=== PATIENT | female | born 1980 | race Caucasian/White ===

== ENCOUNTER 2018-09-16 23:30 | Emergency (ER) | payer MEDICAID, SELFPAY ==
[2018-09-16 23:32] VITALS: BP 133/91; PULSE 94; RESP 19; TEMP 36.8; O2SAT 96; BMI 57.7
--- NOTE | 2018-09-17 00:18 | CT_ITS ---
HISTORY: PT STATED ABDOMINAL PAIN AND FEEDING TUBE ISSUES TECHNIQUE: Helically acquired images were obtained of the abdomen and pelvis without oral or IV contrast. A radiation dose optimization technique was used for this scan. COMPARISON: None FINDINGS: # of images incl. paperwork: [id number] LUNG BASES: Lung bases are clear. Cardiac pacer lead is present. Heart is not enlarged. Transcutaneous, transgastric gastroenteric feeding tube has been pulled back. Loop of the tube is now within the gastric cardia and gastric fundus. The tip of the tube is within the gastric pylorus. It is well upstream of the ligament of Treitz. CT abdomen: Some degenerative disc disease and facet arthropathy The gallbladder has been resected. Liver, spleen, pancreas, and adrenal glands are normal. The kidneys are normal. The aorta is normal. There is no intra-or extrahepatic biliary ductal dilatation. CT pelvis: No ascites is present. The uterus has been resected. The appendix is not perceived, and likely has been resected. The bladder is normal. Diverticulosis is present within the sigmoid colon and descending colon CT/Abdomen/Pelvis without Cont IMPRESSION: Transischemic gastric gastroenteric tube has been pulled back. The tip of the tube is within the pylorus due to a loop of the tube within the gastric cardia and gastric fundus. The balloon appears to be adequately positioned with in the gastric fundus. There is no evidence of leakage of gas or liquid along the tube with the tube tract Individualized dose optimization techniques were used for this CT. at 0241 Reported and signed by: Vitaly Mcdaniel MD Electronically Signed: Vitaly Mcdaniel MD at 2:40 EDT Tel , Service support ,
[2018-09-17] MEDS: HYDROmorphone 1 MG/ML Syringe IV ×2 (00:56→03:13)
[2018-09-17] MEDS: proMETHazine 25 MG/ML Syringe 12.5 MG IV (00:56)
[2018-09-17] MEDS: 0.9% Normal Saline 1,000 ML 1000 ML IV (00:56)
[2018-09-17 01:12] LABS: Absolute Lymphocyte Count 4.25 X10^3/uL (0.83-4.51); Absolute Neutrophil Count 5.4 X10^3/uL (2.0-7.7); Basophil# 0.03 X10^3/uL; Basophil% 0.3 % (0-1); Eosinophil# 0.16 X10^3/uL; Eosinophils% 1.5 % (0-5); Hematocrit 40.8 % (37-47); Hemoglobin 13.3 g/dL (12.0-15.0); Lymphocyte # 4.25 X10^3/ul (4.0); Lymphocyte % 40.6 % (19-41); Mean Corp Hgb Conc 32.6 g/dL (32-36); Mean Corpuscular Hgb 28.4 pg (27.0-32.0); Mean Corpuscular Volume 87.2 fL (81-99); Mean Platelet Vol. 10.3 fl (6.2-12.0); Monocyte# 0.64 X10^3/uL; Monocyte% 6.1 % (0-10); NRBC Flagged by Analyzer 0 % (0-5); Neutrophil # 5.36 X10^3/uL (2.7-7.7); Neutrophil % 51.1 % (47-70); Platelet Count 332 K/mm3 (150-450); RBC Distribution Width CV 14.3 % (11.6-14.6); RBC Distribution Width SD 45.2 fl (35.1-43.9); Red Blood Count 4.68 M/mm3 (4.2-5.4); White Blood Count 10.5 K/mm3 (4.4-11.0)
[2018-09-17 01:38] LABS: AST(SGOT) 21 U/L (15-37); Alanine Aminotransfer ALT/SGPT 39 U/L (13-56); Albumin, Serum 3.2 g/dL (3.2-5.0); Alkaline Phosphatase 137 U/L (45-117); Anion Gap 9 (5-15); BUN 13 mg/dL (7-18); Bilirubin, Direct 0.07 mg/dL (0.00-0.30); Calcium,Total 8.4 mg/dL (8.5-10.1); Chloride 108 mmol/L (98-107); Creatinine, Serum 0.59 mg/dL (0.55-1.02); EST Glomerular Filtration Rate 119 mL/min (>60); Est Glom Filt Rate - Afr Amer 144 mL/min (>60); Estimated Creatinine Clearance 100.25 ml/min; Globulin 3.3 g/dL (2.2-4.2); Glucose 96 mg/dL (74-106); Lipase 133 U/L (73-393); Potassium 3.8 mmol/L (3.5-5.1); Protein, Total 6.5 g/dL (6.4-8.2); Sodium Level 143 mmol/L (136-145)
--- NOTE | 2018-09-17 02:07 | ED.RN ---
PER DR JAMES PT IS NOT SEPTIC.
--- NOTE | 2018-09-17 03:01 | ED.DCSUM_ITS ---
- ER Visit Summary Date of Service: 09/17/18 Chief Complaint: Abdominal pain History of Present Illness: The patient is a 38 F who presents with abdominal pain. Patient has a history of idiopathic gastroparesis. She states that she was on hospice for this at one point but no longer sees them. She does still follow with palliative care. She has a GJ tube. She normally has to empty her drain this. She reports getting decreased output. She complains of feeling lethargic over the last 3 days. She complains of increased abdominal pain nausea vomiting and diarrhea over the last 2 to 3 days. She reports fever of 101.2. Her abdominal pain is worst in the left upper quadrant. Physical Examination: Afebrile vitals unremarkable Moist mucous membranes Heart regular rate and rhythm Lungs clear Abdomen soft nondistended Left upper quadrant tenderness with no guarding no rebound G-tube noted Test Results: CBC CMP lipase unremarkable. CT the abdomen and pelvis read as the gastroenteric tube is been pulled back with the tip within the pylorus due to a loop in the tube. The balloon appears to be appropriate located in the stomach. Emergency Department Course and Treatment: Patient was treated with IV fluids, Dilaudid, Phenergan. Imaging as above. Imaging does appear to show malposition of the gastroenteric tube. Patient's previous care has been at [facility]. She also continues to complain of significant abdominal pain. She was given repeat doses of Dilaudid. She will be transferred to [facility]. Treatment Plan: [] Disposition: Transfer Impression: Intractable abdominal pain Gastroparesis GJ tube dislodgment This note was generated with [employer]ire[employer] dictation software. It may contain incorrect words, spelling, and punctuation that were not noted in review of the chart prior to signing ED Disposition - Plan for ED Patient: Referrals: Ta Chen MD [Primary Care Provider] -
--- NOTE | 2018-09-17 03:02 | ED.RN ---
[facility] CONTACT FOR TRANSFER
[2018-09-17 03:08] VITALS: BP 134/66; PULSE 70; RESP 16; O2SAT 95
--- NOTE | 2018-09-17 03:14 | ED.DEP ---
ED Disposition - Plan for ED Patient: Instructions: ABDOMINAL PAIN, Unknown Cause, (Female), Gastroparesis Referrals: Ta Chen MD [Primary Care Provider] -
--- NOTE | 2018-09-17 03:23 | ED.RN ---
PT WOULD NOT WAIT THE 15 MINUTES TIE AFTER DILAUDID.PT DE-ACTIVATED HER PORT AND SAID SHE WAS GOOD AND LEFT.
[2018-09-17 03:24] VITALS: BP 134/66; PULSE 70; RESP 16; O2SAT 95
== END 2018-09-17 03:25 | disposition home or self-care (01) ==
LOC: ED 09-17 00:13
PROVIDERS: Emergency Provider Emergency Medicine; Family Provider Internal Medicine; PCP Internal Medicine
DX: R10.12 Left upper quadrant pain (principal); G89.29 Other chronic pain; K31.84 Gastroparesis; K94.29 Other complications of gastrostomy; R19.7 Diarrhea, unspecified; R11.2 Nausea with vomiting, unspecified; R50.9 Fever, unspecified; Z79.899 Other long term (current) drug therapy
CPT/HCPCS: 36591; 74176; 80048; 80076; 83690; 85025; 96361; 96374; 96375; 96376; 99284; J7030; A4216

== ENCOUNTER 2019-03-27 15:13 | Observation (INO) | payer MEDICAID, SELFPAY ==
[2019-03-27] VITALS (8 sets, daily range): BP systolic 100–151; BP diastolic 60–89; PULSE 68–136; RESP 16–26; TEMP 36.1–37.1; O2SAT 92–100; BMI 46.0; BMI 56.7
--- NOTE | 2019-03-27 15:32 | EKG12_ITS ---
Test Reason : Blood Pressure : / mmHG Vent. Rate : 118 BPM Atrial Rate : 118 BPM P-R Int : 130 ms QRS Dur : 082 ms QT Int : 298 ms P-R-T Axes : 062 037 053 degrees QTc Int : 417 ms Sinus tachycardia Otherwise normal ECG Confirmed by SRUTHI HENDERSON, CHRISTIAN ([id number]), social media editor BRIAN DEAN ([id number]) on 03/31/2019 10:26:15 AM Referred By: ANNA Confirmed By:MADIE NEGRO MD
[2019-03-27 16:04] LABS: Absolute Lymphocyte Count 2.84 X10^3/uL (0.83-4.51); Absolute Neutrophil Count 8.1 X10^3/uL (2.0-7.7); Basophil# 0.06 X10^3/uL; Basophil% 0.5 % (0-1); Eosinophil# 0.19 X10^3/uL; Eosinophils% 1.6 % (0-5); Hematocrit 45.2 % (37-47); Hemoglobin 14.1 g/dL (12.0-15.0); Lymphocyte # 2.84 X10^3/ul (4.0); Lymphocyte % 23.5 % (19-41); Mean Corp Hgb Conc 31.2 g/dL (32-36); Mean Corpuscular Hgb 26.9 pg (27.0-32.0); Mean Corpuscular Volume 86.1 fL (81-99); Mean Platelet Vol. 10.1 fl (6.2-12.0); Monocyte# 0.73 X10^3/uL; NRBC Flagged by Analyzer 0 % (0-5); Neutrophil # 8.11 X10^3/uL (2.7-7.7); Neutrophil % 67.2 % (47-70); Platelet Count 398 K/mm3 (150-450); RBC Distribution Width CV 13.7 % (11.6-14.6); RBC Distribution Width SD 43.2 fl (35.1-43.9); Red Blood Count 5.25 M/mm3 (4.2-5.4); White Blood Count 12.1 K/mm3 (4.4-11.0)
[2019-03-27 16:04] LABS: Bacteria 0 SEEN /hpf (None Seen); Mucous, Urine 0 SEEN /hpf (<or=2+); Red Blood Cells-Urine 0 SEEN /hpf (0-5); White Blood Cells 0 SEEN /hpf (0-5)
[2019-03-27 16:09] LABS: Color, Urine Yellow (Yellow); Glucose, Dipstick Normal (Normal); Ketone-Dipstick Negative (Negative); Leukocyte Esterase-Dipstick Negative /ul (Negative); Nitrite-Dipstick Negative (Negative); Occult Blood-Urine Negative /ul (Negative); Protein-Dipstick Negative (Negative); Urine Bilirubin Dipstick Negative (Negative); Urine Clarity Sl. Cloudy (Clear); Urine Urobilinogen Normal (Normal)
[2019-03-27 16:14] LABS: Internal QC Validated? YES +Cl - CLEAR BKGD; Pregnancy, Serum, hCG Quali. NEGATIVE Negative
[2019-03-27 16:21] LABS: ALB/GLOB Ratio 0.7 RATIO (0.9-2.4); AST(SGOT) 32 U/L (15-37); Alanine Aminotransfer ALT/SGPT 47 U/L (13-56); Albumin, Serum 3.1 g/dL (3.2-5.0); Alkaline Phosphatase 159 U/L (45-117); Anion Gap 5 (5-15); BUN 12 mg/dL (7-18); BUN/Creat Ratio 13.5 RATIO (10-20); Chloride 107 mmol/L (98-107); Creatinine, Serum 0.89 mg/dL (0.55-1.02); EST Glomerular Filtration Rate 75 mL/min (>60); Est Glom Filt Rate - Afr Amer 90 mL/min (>60); Estimated Creatinine Clearance 68.81 ml/min; Globulin 4.2 g/dL (2.2-4.2); Glucose 114 mg/dL (74-106); Lipase 79 U/L (73-393); Potassium 4.2 mmol/L (3.5-5.1); Protein, Total 7.3 g/dL (6.4-8.2); Sodium Level 136 mmol/L (136-145)
[2019-03-27 16:33] LABS: Squamous Epithelial Cells - UA 0-5 SEEN /hpf (5-10)
[2019-03-27] MEDS: proMETHazine 25 MG/ML Syringe 6.25 MG IV ×2 (16:42→19:49)
[2019-03-27] MEDS: fentaNYL 100 MCG/2 ML Ampul 50 MCG IV (16:43)
--- NOTE | 2019-03-27 17:40 | ED.DCSUM_ITS ---
- ER Visit Summary Date of Service: 03/27/19 Chief Complaint: Vomiting and diarrhea History of Present Illness: The patient is a 39 F with a history of gastroparesis who was previously on hospice and is currently treated by palliative care for gastroparesis. She presents today with vomiting and diarrhea for the past 2 days. She says she is out of her feeds because of a male issue and is expecting her feeds to arrive at her home in 2 days. She also reports a cough and she had fevers recently. She has an ongoing cough and respiratory symptoms as well as fevers, she has been evaluated for these issues, and they have not identified a source. She said she normally gets her care at the [facility]. She was attempting to drive up there but felt too poorly and could not make the drive. Physical Examination: Afebrile and vital signs unremarkable except for heart rate of 136 and respiratory rate of 24. Heart is tachycardic but regular. She has a left chest PowerPort. Lungs are clear, but she does exhibit upper airway respiratory noise. Abdomen is soft and nontender. She has a GJ tube. Skin is unremarkable. Test Results: White count 12.1. Otherwise labs all fairly unremarkable. hCG negative. Urinalysis normal. C. difficile pending. EKG showed sinus rhythm at a rate of 118. Chest x-ray pending. Emergency Department Course and Treatment: Patient was treated with fluids, nausea medicine, pain medicine.. She requested transfer to the [facility]. They did not have beds available, but were agreeable to transfer once they did. I spoke with the patient. She was agreeable to admission here and transfer should she need it. I contacted the hospitalist who will admit for further care, fluids, and nutrition. Treatment Plan: As above Disposition: Admission ImpressioN: Vomiting Diarrhea Gastroparesis This note was generated with [employer] dictation software. It may contain incorrect words, spelling, and punctuation that were not noted in review of the chart prior to signing ED Disposition - Plan for ED Patient: Referrals: Ta Chen MD [Primary Care Provider] -
--- NOTE | 2019-03-27 17:42 | PCM.HP.STD ---
<Guevara Liu - Last Filed: 03/27/19 17:42> Problem List (1) Intractable nausea and vomiting Status: Acute (2) Asthma exacerbation Status: Acute (3) Gastroparesis Status: Chronic (4) C. difficile colitis Status: Chronic (5) Seizure disorder Status: Chronic History of Present Illness Date of Admission: 03/27/19 Chief Complaint: intractable nausea/vomiting/diarrhea The patient is a 39 year old F with pmhx of gastroparesis of unclear etiology (she states it happened [place] [employer] [place]), presence of GJ tube, seizure disorder, Asthma, C diff colitis, recently admitted at [facility] with intractable nausea/vomiting, who presented to the ER with intractable nausea vomiting and diarrhea. She says this started two days ago. She has not been able to keep down any meds. She states she has been drinking to feed herself but unable to keep anything down. She says she does not actually put food through the GJ tube, it is only there maintaining a sinus. She has vomited approximately 10 times. She has severe 9/10 abdominal cramping. She has had about 15 rounds of watery diarrhea. She also is SOB and very wheezy stating her asthma has never been this bad. She is on palliative care with [facility], and states she declined to go hospice this AM. ER planned to transfer her to the clinic however they do not have a bed. Her GI doctor is Gautam Malagon. She planned to go to the clinic however she was too ill. She has never been admitted here before. [] Past Medical History Past Medical History (Chronic Problems): Chronic Problems Gastroparesis (Chronic) C. difficile colitis (Chronic) Seizure disorder (Chronic) Allergies Latex, Natural Rubber Allergy (Verified 09/16/18 23:32) Anaphylaxis morphine Adverse Reaction (Verified 09/16/18 23:32) Hives moxifloxacin [From Avelox] Adverse Reaction (Verified 09/16/18 23:32) Hives ondansetron [From Zofran] Adverse Reaction (Verified 09/16/18 23:32) Other Home Medications: Ambulatory Orders Medication Instructions Recorded Albuterol Sulfate [Albuterol 1 - 2 puff IH Q4H PRN PRN 03/27/19 Sulfate Hfa] Diazepam [Valium] 5 mg PO BID 03/27/19 Dicyclomine HCl [Bentyl] 10 mg PO Q4H PRN 03/27/19 Epi Pen (for allergic rxn) 0.3 ml IM DAILY PRN PRN 03/27/19 Fluticasone Propionate [Flovent 1 puff INHALATION BID 03/27/19 Hfa] Ipratropium/Albuterol Sulfate 3 ml INHALATION 4X/DAY 03/27/19 [Iprat-Albut 0.5-3(2.5) mg/3 ml] Levetiracetam [Keppra] 2,000 mg PO BID 03/27/19 Oxycodone HCl/Acetaminophen 1 tab PO 4X/DAY 03/27/19 [Oxycodone-Acetaminophen 5-325] Promethazine HCl 50 mg PO Q4H PRN PRN 03/27/19 traZODone [Desyrel] 200 mg PO QHS 03/27/19 Surgical History: - - GJ tube. 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 Denies: Cough, Sputum production Gastrointestinal: Reports: Abdominal Pain, Diarrhea, Nausea, Vomiting Genitourinary: Denies: Dysuria, Hematuria Musculoskeletal: Denies: Joint Pain, Joint Tenderness Skin: Denies: Rash, Wounds Neurological: Denies: Numbness, Tingling, Focal weakness Psychiatric: Denies: Anxiety, Depression, Homicidal Ideations, Suicidal Ideations Hematologic/ Lymphatic: Denies: Easy Bruising, Easy Bleeding VTE Information - Inpt Only VTE Present on Admission: No VTE Mechan Device Prophylaxis: None VTE Pharm Prophylaxis ordered?: Yes Patient Problems: Active and Suspected Problems Intractable nausea and vomiting (Acute) Asthma exacerbation (Acute) - Physical Exam Vitals/I&O's: Vital Signs Temp Pulse Resp BP Pulse Ox 97.7 F L 93 19 H 122/89 H 98 03/27/19 17:00 03/27/19 17:23 03/27/19 17:23 03/27/19 17:23 03/27/19 17:23 Oxygen Delivery Method Room Air Weight: 260 lb Body Mass Index (BMI) 46.0 Intake and Output for Last 24 Hours 03/25/19 03/26/19 03/27/19 23:59 23:59 23:59 Intake Total 500 / 500 Balance 500 / 500 General: Alert, Oriented x3, Cooperative HEENT: Atraumatic, PERRLA, EOMI, Normocephalic Neck: Supple, No JVD, Negative Carotid Bruits Lungs: Normal air movement, Wheezes Cardiovascular: Regular rate, No murmurs Abdomen: Soft, Hypoactive Bowel Sounds, Obese, Tender Extremities: No edema, Capillary Refill Less than 3 Seconds Skin: No rashes, No breakdown Musculoskeletal: No Tenderness to Palpation of Joints or Extremities Neurological: Cranial nerves II-XII grossly intact Psych/Mental Status: Normal Affect, Appropriate, Alert and oriented to time, place, person, mood and affect Microbiology Past 72 Hours 03/27/19 16:15 Mucosa - Nose Influenza Types A,B Direct FA (ARELI) - Final Laboratory Results 03/27/19 15:45: WBC 12.1 H, RBC 5.25, Hgb 14.1, Hct 45.2, MCV 86.1, MCH 26.9 L, MCHC 31.2 L, RDW Std Deviation 43.2, RDW Coeff of Pradeep 13.7, Plt Count 398, MPV 10.1, Immature Gran % (Auto) 1.200 H, Neut % (Auto) 67.2, Lymph % (Auto) 23.5, [place] % (Auto) 6.0, Eos % (Auto) 1.6, Baso % (Auto) 0.5, Absolute Neuts (auto) 8.1 H, Absolute Lymphs (auto) 2.84, Nucleated RBC % 0 03/27/19 15:45: Sodium 136, Potassium 4.2, Chloride 107, Carbon Dioxide 24.0, Anion Gap 5, BUN 12, Creatinine 0.89, Estim Creat Clear Calc 68.81, Est GFR (MDRD) Af Amer 90, Est GFR (MDRD) Non-Af 75, BUN/Creatinine Ratio 13.5, Glucose 114 H, Calcium 9.0, Total Bilirubin 0.20, AST 32, ALT 47, Alkaline Phosphatase 159 H, Total Protein 7.3, Albumin 3.1 L, Globulin 4.2, Albumin/Globulin Ratio 0.7 L, Lipase 79 03/27/19 15:45: Serum , Qual NEGATIVE 03/27/19 16:01: Urine Color Yellow, Urine Clarity Sl. Cloudy, Urine pH 6.0, Ur Specific [place] 1.010, Urine Protein Negative, Urine Glucose (UA) Normal, Urine Ketones Negative, Urine Occult Blood Negative, Urine Nitrite Negative, Urine Bilirubin Negative, Urine Urobilinogen Normal, Ur Leukocyte Esterase Negative, Urine RBC 0 SEEN, Urine WBC 0 SEEN, Ur Squamous Epith Cells 0-5 SEEN, Urine Bacteria 0 SEEN, Urine Mucus 0 SEEN Assessment/Plan All Active Problems Intractable nausea and vomiting (Acute) Asthma exacerbation (Acute) 1. Intractable nausea/vomiting/diarrhea - likely 2/2 gastroparesis. possibly viral syndrome, possily recurrent Cdiff. Check stool for c diff and enteric panel. Provide IV fluids, antiemetics, pain control. HCG neg. Alk phos somewhat elevated. Lipase neg. UA neg. 2. Gastroparesis - unclear etiology. Apparently she is on palliative care for this and was offered hospice today but declined. She has GJ in place. Nutrition consult for dietary management. 3. Asthma exacerbation - SOB and very wheezy, initate aerosols and steroids. 4. Seizure disorder - has been off meds. attempt to put in GJ tube. Takes Scheduled keppra and valium for this. 5. Morbid obesity - nutrition consult DVT ppx: Lovenox DC planning: may need transfer to [facility] if bed becomes available This patient was seen by Guevara Liu PA-C under the supervision of Dr. Marrero. <Fernando Marrero F - Last Filed: 03/27/19 18:38> History of Present Illness The patient is a 39 year old F [] Past Medical History Allergies Latex, Natural Rubber Allergy (Verified 09/16/18 23:32) Anaphylaxis morphine Adverse Reaction (Verified 09/16/18 23:32) Hives moxifloxacin [From Avelox] Adverse Reaction (Verified 09/16/18 23:32) Hives ondansetron [From Zofran] Adverse Reaction (Verified 09/16/18 23:32) Other - Physical Exam Vitals/I&O's: Vital Signs Temp Pulse Resp BP Pulse Ox 97.7 F L 96 16 136/78 H 98 03/27/19 17:00 03/27/19 18:28 03/27/19 18:28 03/27/19 18:28 03/27/19 18:28 Oxygen Delivery Method Room Air Weight: 260 lb Body Mass Index (BMI) 46.0 Intake and Output for Last 24 Hours 03/25/19 03/26/19 03/27/19 23:59 23:59 23:59 Intake Total 500 / 500 Balance 500 / 500 Microbiology Past 72 Hours 03/27/19 16:15 Mucosa - Nose Influenza Types A,B Direct FA (ARELI) - Final Laboratory Results 03/27/19 15:45: WBC 12.1 H, RBC 5.25, Hgb 14.1, Hct 45.2, MCV 86.1, MCH 26.9 L, MCHC 31.2 L, RDW Std Deviation 43.2, RDW Coeff of Pradeep 13.7, Plt Count 398, MPV 10.1, Immature Gran % (Auto) 1.200 H, Neut % (Auto) 67.2, Lymph % (Auto) 23.5, [place] % (Auto) 6.0, Eos % (Auto) 1.6, Baso % (Auto) 0.5, Absolute Neuts (auto) 8.1 H, Absolute Lymphs (auto) 2.84, Nucleated RBC % 0 03/27/19 15:45: Sodium 136, Potassium 4.2, Chloride 107, Carbon Dioxide 24.0, Anion Gap 5, BUN 12, Creatinine 0.89, Estim Creat Clear Calc 68.81, Est GFR (MDRD) Af Amer 90, Est GFR (MDRD) Non-Af 75, BUN/Creatinine Ratio 13.5, Glucose 114 H, Calcium 9.0, Total Bilirubin 0.20, AST 32, ALT 47, Alkaline Phosphatase 159 H, Total Protein 7.3, Albumin 3.1 L, Globulin 4.2, Albumin/Globulin Ratio 0.7 L, Lipase 79 03/27/19 15:45: Serum , Qual NEGATIVE 03/27/19 16:01: Urine Color Yellow, Urine Clarity Sl. Cloudy, Urine pH 6.0, Ur Specific [place] 1.010, Urine Protein Negative, Urine Glucose (UA) Normal, Urine Ketones Negative, Urine Occult Blood Negative, Urine Nitrite Negative, Urine Bilirubin Negative, Urine Urobilinogen Normal, Ur Leukocyte Esterase Negative, Urine RBC 0 SEEN, Urine WBC 0 SEEN, Ur Squamous Epith Cells 0-5 SEEN, Urine Bacteria 0 SEEN, Urine Mucus 0 SEEN Code Visit Addendum: Dr. Marrero I personally examined the patient and reviewed the chart. I agree with the above. 39-year-old female who states that she was [facility] 05[facility]2010 presents with nausea, vomiting, diarrhea, and an upper respiratory infection with wheezing as well as a postnasal drip and a cough. 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 Because of all this she states that she is DNR CC and she has a palliative care nurse and she is willing to go hospice versus having any more significant medical interventions. She also has a GJ tube because of her difficulty with p.o. intake. She initially want to be transferred to the [facility] however they did not have a bed for her and therefore she was okay with staying here. We will plan to give her her medications via her GJ tube, will give her IV fluids for fluid resuscitation given her nausea and vomiting. When able can restart tube feeds. And will continue with her home inhalers. OBSV E&M: [id number] Initial observation care L3
[2019-03-27] MEDS: 0.9% Normal Saline 1,000 ML 125 ML IV (19:10)
[2019-03-27] MEDS: HYDROmorphone 0.5 MG/0.5 ML SYRINGE IV ×2 (19:51→23:34)
[2019-03-27] MEDS: Ipratropium/Albuterol Sulfate 3 ML AMPUL.NEB INHALATION (19:55)
[2019-03-27] MEDS: Enoxaparin 40 MG/0.4 ML Syringe SC (21:40)
[2019-03-28] VITALS (7 sets, daily range): BP systolic 101–138; BP diastolic 62–85; PULSE 67–82; RESP 16–20; TEMP 36.6–37; O2SAT 92–97
[2019-03-28] MEDS: proMETHazine 25 MG/ML Syringe 6.25 MG IV ×5 (00:06→21:36)
[2019-03-28] MEDS: HYDROmorphone 0.5 MG/0.5 ML SYRINGE IV ×3 (02:42→11:54)
[2019-03-28] MEDS: 0.9% Normal Saline 1,000 ML 125 ML IV ×3 (02:51→21:37)
[2019-03-28] MEDS: Albuterol 2.5 MG/3 ML VIAL.NEB. INHALATION (03:01)
[2019-03-28 06:28] LABS: Absolute Lymphocyte Count 1.17 X10^3/uL (0.83-4.51); Absolute Neutrophil Count 6.2 X10^3/uL (2.0-7.7); Basophil# 0.01 X10^3/uL; Basophil% 0.1 % (0-1); Hematocrit 40.8 % (37-47); Hemoglobin 13.1 g/dL (12.0-15.0); Lymphocyte # 1.17 X10^3/ul (4.0); Lymphocyte % 15.5 % (19-41); Mean Corp Hgb Conc 32.1 g/dL (32-36); Mean Corpuscular Hgb 27.7 pg (27.0-32.0); Mean Corpuscular Volume 86.3 fL (81-99); Monocyte# 0.12 X10^3/uL; Monocyte% 1.6 % (0-10); NRBC Flagged by Analyzer 0 % (0-5); Neutrophil # 6.17 X10^3/uL (2.7-7.7); Platelet Count 353 K/mm3 (150-450); RBC Distribution Width CV 13.5 % (11.6-14.6); RBC Distribution Width SD 42.5 fl (35.1-43.9); Red Blood Count 4.73 M/mm3 (4.2-5.4); White Blood Count 7.5 K/mm3 (4.4-11.0)
[2019-03-28 06:47] LABS: Anion Gap 3 (5-15); BUN 11 mg/dL (7-18); BUN/Creat Ratio 14.4 RATIO (10-20); Calcium,Total 8.8 mg/dL (8.5-10.1); Chloride 107 mmol/L (98-107); Creatinine, Serum 0.76 mg/dL (0.55-1.02); EST Glomerular Filtration Rate 88 mL/min (>60); Est Glom Filt Rate - Afr Amer 107 mL/min (>60); Estimated Creatinine Clearance 80.58 ml/min; Glucose 200 mg/dL (74-106); Potassium 4.7 mmol/L (3.5-5.1); Sodium Level 136 mmol/L (136-145)
[2019-03-28] MEDS: Ipratropium/Albuterol Sulfate 3 ML AMPUL.NEB INHALATION ×2 (07:19→14:26)
--- NOTE | 2019-03-28 08:23 | NURSING ---
in with mold engraver charge nurse Suzette RN to assess VAD. pt stated VAD was place and accessed sunday at [facility]. Also states that her son is certified and assists in the needle and dressing changes but she does have home health care. found VAD with dressing peeling off and saturated gauze under and around the needle with scant amt serous fluid on gauze. Needle tubing appeared to have tape residue on it. Pt agreeable to have needle changed as well as dressing. VAD deaccessed. Unclear if needle from outside facility was a power needle as pt states is a power port. Pt also verbalized she has had numerous other VADs placed. pt was able to produce a davis chain card that states Power port but unclear if this card was for this VAD. Incision to VAD area intake, [place] areas to top of VAD incision area with small amount of bruising noted around VAD. 2 steristrips were off the area, 1 small steristrip remained. also noted steristrips to left neck. Area cleaned and reaccessed & dressed per policy. see documentation for re-access. 1inch gripper utilized due to lack of clarity that this is a power port. Unable to palpate power port soft palpation points on septum. pt tolerated well and denies all further needs. Primary RN informed.
[2019-03-28] MEDS: Ensure Clear 120 ML Liquid PO ×2 (09:47→11:52)
[2019-03-28] MEDS: Enoxaparin 40 MG/0.4 ML Syringe SC ×2 (09:49→21:36)
--- NOTE | 2019-03-28 11:31 | NURSING ---
PT HAD REQUESTED PAIN MEDS , BUT IS RESTING QUIETLY WITH EYES CLOSED
[2019-03-28] MEDS: 0.9% Saline Lock 10 ML Syringe IV ×2 (11:53→14:09)
--- NOTE | 2019-03-28 12:11 | CASEMGMT ---
As per physician, pt has been on palliative care w/[facility] and now would like hospice. SW spoke w/pt, confirmed w/her that she now would like to be on hospice. Pt states she has had 135 surgeries and the last one did not go well. Pt explains she can tolerate pain but not belly pain. She does not want anything else done. Support offered. SW asked pt also if she would like SW to add her to the demographics, she declined. SW called [facility]([phone]), spoke w/them about referral. They asked SW to call palliative and have palliative call them. SW called [facility]([phone]), message left. SW called [facility] back, explained physician here is making referral, so can referral be sent. Tiffanie at [facility] states that yes, the referral can be sent, though w/pt living in [place] they may not be able to work w/her. SW faxed referral and Tiffanie from [facility] is to let SW know if they can take pt. SW faxed referral, will await call back. AUDRA Estrada
--- NOTE | 2019-03-28 12:58 | PN_ITS ---
<Guevara Liu - Last Filed: 03/28/19 12:58> Patient Problems: Active and Suspected Problems Intractable nausea and vomiting (Acute) Asthma exacerbation (Acute) Reason for Visit: Intractable N/V/D/Abd pain. SOB and wheezing resolved. nonproductive, rare, cough. Subjective: Pt with mildly improved cramping abd pain. Last diarrhea this AM about 0400. No N/V. no fever/chills. Vitals/I&O's: Vital Signs Temp Pulse Resp BP Pulse Ox 98.6 F 75 16 101/62 97 03/28/19 09:43 03/28/19 09:43 03/28/19 09:43 03/28/19 09:43 03/28/19 09:43 Oxygen Delivery Method Room Air Weight: 320 lb Body Mass Index (BMI) 56.7 Intake and Output for Last 24 Hours 03/26/19 03/27/19 03/28/19 23:59 23:59 23:59 Intake Total 953.33 / 953.33 1855.42 / 1855.42 Balance 953.33 / 953.33 1855.42 / 1855.42 General: Alert, Oriented x3, Cooperative HEENT: Atraumatic, PERRLA, EOMI, Normocephalic Neck: Supple, No JVD, Negative Carotid Bruits Lungs: Clear to auscultation, Normal air movement Cardiovascular: Regular rate, No murmurs Abdomen: Soft, Hypoactive Bowel Sounds, Obese, Tender - diffuse Extremities: No edema, Capillary Refill Less than 3 Seconds Skin: No rashes, No breakdown Musculoskeletal: No Tenderness to Palpation of Joints or Extremities Neurological: Cranial nerves II-XII grossly intact Psych/Mental Status: Normal Affect, Appropriate, Alert and oriented to time, place, person, mood and affect Microbiology Past 72 Hours 03/27/19 21:10 Stool C. difficile DNA Amplification - Final 03/27/19 21:10 Stool Enteric Bacteriology - Preliminary 03/27/19 16:15 Mucosa - Nose Influenza Types A,B Direct FA (ARELI) - Final Laboratory Results 03/27/19 15:45: WBC 12.1 H, RBC 5.25, Hgb 14.1, Hct 45.2, MCV 86.1, MCH 26.9 L, MCHC 31.2 L, RDW Std Deviation 43.2, RDW Coeff of Pradeep 13.7, Plt Count 398, MPV 10.1, Immature Gran % (Auto) 1.200 H, Neut % (Auto) 67.2, Lymph % (Auto) 23.5, [place] % (Auto) 6.0, Eos % (Auto) 1.6, Baso % (Auto) 0.5, Absolute Neuts (auto) 8.1 H, Absolute Lymphs (auto) 2.84, Nucleated RBC % 0 03/27/19 15:45: Sodium 136, Potassium 4.2, Chloride 107, Carbon Dioxide 24.0, Anion Gap 5, BUN 12, Creatinine 0.89, Estim Creat Clear Calc 68.81, Est GFR (MDRD) Af Amer 90, Est GFR (MDRD) Non-Af 75, BUN/Creatinine Ratio 13.5, Glucose 114 H, Calcium 9.0, Total Bilirubin 0.20, AST 32, ALT 47, Alkaline Phosphatase 159 H, Total Protein 7.3, Albumin 3.1 L, Globulin 4.2, Albumin/Globulin Ratio 0.7 L, Lipase 79 03/27/19 15:45: Serum , Qual NEGATIVE 03/27/19 16:01: Urine Color Yellow, Urine Clarity Sl. Cloudy, Urine pH 6.0, Ur Specific Jackson 1.010, Urine Protein Negative, Urine Glucose (UA) Normal, Urine Ketones Negative, Urine Occult Blood Negative, Urine Nitrite Negative, Urine Bilirubin Negative, Urine Urobilinogen Normal, Ur Leukocyte Esterase Negative, Urine RBC 0 SEEN, Urine WBC 0 SEEN, Ur Squamous Epith Cells 0-5 SEEN, Urine Bacteria 0 SEEN, Urine Mucus 0 SEEN 03/28/19 06:12: WBC 7.5, RBC 4.73, Hgb 13.1, Hct 40.8, MCV 86.3, MCH 27.7, MCHC 32.1, RDW Std Deviation 42.5, RDW Coeff of Pradeep 13.5, Plt Count 353, MPV 10.0, Immature Gran % (Auto) 0.800, Neut % (Auto) 82.0 H, Lymph % (Auto) 15.5 L, [place] % (Auto) 1.6, Eos % (Auto) 0.0, Baso % (Auto) 0.1, Absolute Neuts (auto) 6.2, Absolute Lymphs (auto) 1.17, Nucleated RBC % 0 03/28/19 06:12: Sodium 136, Potassium 4.7, Chloride 107, Carbon Dioxide 26.0, Anion Gap 3 L, BUN 11, Creatinine 0.76, Estim Creat Clear Calc 80.58, Est GFR (MDRD) Af Amer 107, Est GFR (MDRD) Non-Af 88, BUN/Creatinine Ratio 14.4, Glucose 200 H, Calcium 8.8 Current Medications Albuterol Sulfate (Ventolin Aerosols) 2.5 mg INHALATION Q6H PRN PRN PRN Reason: SOB &/OR WHEEZING Last Admin: 03/28/19 03:01 Dose: 2.5 mg Documented by: Albuterol/Ipratropium (Duoneb) 3 ml INHALATION Q6HWA.RT [facility] Last Admin: 03/28/19 07:19 Dose: 3 ml Documented by: Diazepam (Valium) 5 mg PO BID [facility] Last Admin: 03/28/19 10:11 Dose: Not Given Documented by: Dicyclomine HCl (Bentyl) 10 mg PO Q4H PRN PRN PRN Reason: spasms Enoxaparin Sodium (Lovenox) 40 mg SC BID [facility] Last Admin: 03/28/19 09:49 Dose: 40 mg Documented by: Heparin Sodium (Beef Lung) () 50 units IV UD PRN PRN Reason: R Port Heparin Flush Hydromorphone HCl (Dilaudid Tablet) 2 - 4 mg GT Q4H PRN PRN PRN Reason: Pain Score 6-10/10 Sodium Chloride () 1,000 mls @ 125 mls/hr IV .Q8H [facility] Last Admin: 03/28/19 12:52 Dose: 125 mls/hr Documented by: Levetiracetam (Keppra Tablet) 2,000 mg PO BID [facility] Methylprednisolone (Solu-Medrol) 40 mg IV Q8 [facility] Last Admin: 03/28/19 05:21 Dose: 40 mg Documented by: Nutritional Formula (Lactose Free) (Ensure Clear) 120 ml PO TIDCM [facility] Last Admin: 03/28/19 11:52 Dose: 120 ml Documented by: Promethazine HCl (Phenergan) 6.25 mg IV Q4H PRN PRN PRN Reason: NAUSEA/VOMITING Last Admin: 02/07/20 09:49 Dose: 6.25 mg Documented by: Sodium Chloride () 10 - 40 ml IV UD PRN PRN Reason: R Port Saline Flush Last Admin: 03/28/19 11:53 Dose: 10 ml Documented by: Sodium Chloride (0.9% Nacl (Sterile) Posiflush) 10 - 40 ml IV UD PRN PRN Reason: Port access or dressing change Trazodone HCl (Desyrel) 200 mg PO QHS [facility] Last Admin: 03/27/19 22:45 Dose: Not Given Documented by: STROKE Vital Signs/Narrative: Vital Signs Temp Pulse Resp BP Pulse Ox 03/28/19 09:43 98.6 F 75 16 101/62 97 Medical Necessity - Tobacco Use Smoking Status: Current some day smoker Tobacco Use: Cigarettes Assessment/Plan All Active Problems Intractable nausea and vomiting (Acute) Asthma exacerbation (Acute) 1. Intractable nausea/vomiting/diarrhea - likely 2/2 gastroparesis. possibly viral syndrome, possily recurrent Cdiff. Check stool for c diff and enteric panel. Provide IV fluids, antiemetics, pain control. HCG neg. Alk phos somewhat elevated. Lipase neg. UA neg. -transitioning to PO dilaudid. D/w pharmacy. can take this through the GJ tube. 2. Gastroparesis - unclear etiology. Apparently she is on palliative care for this and was offered hospice today but declined. She has GJ in place. Nutrition consult for dietary management. 3. Asthma exacerbation - improved. Plan for prednisone taper at dc. 4. Seizure disorder - meds via G tube. 5. Morbid obesity - nutrition consult DVT ppx: Lovenox DC planning: improving. Possibly home with hospice/palliative tomorrow. This patient was seen by Guevara Liu PA-C under the supervision of Dr. Churchill <Matthieu Churchill - Last Filed: 03/28/19 16:58> Subjective: Improved N/V. States that she is ready for hospice, but did want to say in front of her son yesterday. Vitals/I&O's: Vital Signs Temp Pulse Resp BP Pulse Ox 36.9 C 78 20 H 112/69 96 03/28/19 14:00 03/28/19 14:26 03/28/19 14:26 03/28/19 14:00 03/28/19 14:00 Oxygen Delivery Method Room Air Weight: 145.15 kg Body Mass Index (BMI) 56.7 Intake and Output for Last 24 Hours 03/26/19 03/27/19 03/28/19 23:59 23:59 23:59 Intake Total 953.33 / 953.33 1855.42 / 1855.42 Balance 953.33 / 953.33 1855.42 / 1855.42 General: Alert, Cooperative HEENT: Atraumatic, Normocephalic Lungs: Clear to auscultation, Normal air movement, No rhonchi, No wheeze Cardiovascular: Regular rate, Regular Rhythm, Normal S1, Normal S2, No murmurs Abdomen: Soft, Hypoactive Bowel Sounds, Obese, Tender, - - GJ tube in place Skin: No rashes, No breakdown Psych/Mental Status: Appropriate, Flat Affect Microbiology Past 72 Hours 03/27/19 21:10 Stool Enteric Bacteriology - Final 03/27/19 21:10 Stool C. difficile DNA Amplification - Final 03/27/19 16:15 Mucosa - Nose Influenza Types A,B Direct FA (ARELI) - Final Laboratory Results 03/28/19 06:12: WBC 7.5, RBC 4.73, Hgb 13.1, Hct 40.8, MCV 86.3, MCH 27.7, MCHC 32.1, RDW Std Deviation 42.5, RDW Coeff of Pradeep 13.5, Plt Count 353, MPV 10.0, Immature Gran % (Auto) 0.800, Neut % (Auto) 82.0 H, Lymph % (Auto) 15.5 L, [place] % (Auto) 1.6, Eos % (Auto) 0.0, Baso % (Auto) 0.1, Absolute Neuts (auto) 6.2, Absolute Lymphs (auto) 1.17, Nucleated RBC % 0 03/28/19 06:12: Sodium 136, Potassium 4.7, Chloride 107, Carbon Dioxide 26.0, Anion Gap 3 L, BUN 11, Creatinine 0.76, Estim Creat Clear Calc 80.58, Est GFR (MDRD) Af Amer 107, Est GFR (MDRD) Non-Af 88, BUN/Creatinine Ratio 14.4, Glucose 200 H, Calcium 8.8 Current Medications Albuterol Sulfate (Ventolin Aerosols) 2.5 mg INHALATION Q6H PRN PRN PRN Reason: SOB &/OR WHEEZING Last Admin: 03/28/19 03:01 Dose: 2.5 mg Documented by: Albuterol/Ipratropium (Duoneb) 3 ml INHALATION Q6HWA.RT [facility] Last Admin: 03/28/19 14:26 Dose: 3 ml Documented by: Diazepam (Valium) 5 mg PO BID [facility] Last Admin: 03/28/19 10:11 Dose: Not Given Documented by: Dicyclomine HCl (Bentyl) 10 mg PO Q4H PRN PRN PRN Reason: spasms Enoxaparin Sodium (Lovenox) 40 mg SC BID [facility] Last Admin: 03/28/19 09:49 Dose: 40 mg Documented by: Heparin Sodium (Beef Lung) () 50 units IV UD PRN PRN Reason: R Port Heparin Flush Hydromorphone HCl (Dilaudid Tablet) 2 - 4 mg GT Q4H PRN PRN PRN Reason: Pain Score 6-10/10 Sodium Chloride () 1,000 mls @ 125 mls/hr IV .Q8H [facility] Last Admin: 03/28/19 12:52 Dose: 125 mls/hr Documented by: Levetiracetam (Keppra Tablet) 2,000 mg PO BID [facility] Methylprednisolone (Solu-Medrol) 40 mg IV Q8 [facility] Last Admin: 03/28/19 14:09 Dose: 40 mg Documented by: Nutritional Formula (Lactose Free) (Ensure Clear) 120 ml PO TIDCM [facility] Last Admin: 03/28/19 11:52 Dose: 120 ml Documented by: Promethazine HCl (Phenergan) 6.25 mg IV Q4H PRN PRN PRN Reason: NAUSEA/VOMITING Last Admin: 03/28/19 14:09 Dose: 6.25 mg Documented by: Sodium Chloride () 10 - 40 ml IV UD PRN PRN Reason: R Port Saline Flush Last Admin: 03/28/19 14:09 Dose: 10 ml Documented by: Sodium Chloride (0.9% Nacl (Sterile) Posiflush) 10 - 40 ml IV UD PRN PRN Reason: Port access or dressing change Trazodone HCl (Desyrel) 200 mg PO QHS [facility] Last Admin: 03/27/19 22:45 Dose: Not Given Documented by: STROKE Vital Signs/Narrative: Vital Signs Temp Pulse Resp BP Pulse Ox 03/28/19 14:26 78 20 H 03/28/19 14:00 36.9 C 67 16 112/69 96 Assessment/Plan Patient seen and examined independently. Data reviewed. I agree with the above note by the physician general assistant. 1. Intractable nausea and vomiting: Improved overall. States that this bout was worse than previous exacerbations. 2. Gastroparesis: cause of #1. Likely due to her many surgeries. 3. Disposition: pending symptomatic improvement. Patient wishes to follow up with hospice. Hospice to see, but [facility] not clear if she would be a candidate. Code Visit Inpatient E&M: 66566 Subs Hosp L2
--- NOTE | 2019-03-28 14:15 | CASEMGMT ---
Addendum entered by Meg Echevarria 03/28/19 14:38: SW placed green sheet on chart to have staff call [facility] when pt is discharged. Original Note: Social Work Note CHERELLE received call from Nesha at [facility] stating they will go to pt's home Sunday to evaluate pt for Hospice Services. Nehsa states she is not sure if pt has an end stage of life diagnosis but again states they will go evaluate for Hospice when pt returns home. Meg Echevarria AFTER SCHOOL COUNSELOR, CLINICAL RESEARCH TECHNICIAN
--- NOTE | 2019-03-28 15:37 | NURSING ---
PT HAD REQUESTED PAIN MEDS, BUT IS RESTING COMFORTABLY WITH EYES CLOSED
[2019-03-28] MEDS: HYDROmorphone 2 MG TABLET GT ×3 (17:13→23:19)
[2019-03-28] MEDS: levETIRAcetam 1,000 MG Tablet 2000 MG PO (21:37)
[2019-03-28] MEDS: diazePAM 5 MG Tablet PO (21:37)
[2019-03-28] MEDS: Mag Hydrox/Al Hydrox/Simeth 30 ML UDC PO (23:15)
[2019-03-29 01:00] VITALS: PULSE 70; RESP 18
[2019-03-29 03:17] VITALS: BP 120/66; PULSE 66; RESP 18; TEMP 36.9; O2SAT 94
[2019-03-29] MEDS: HYDROmorphone 2 MG TABLET GT ×2 (03:21→07:53)
[2019-03-29] MEDS: proMETHazine 25 MG/ML Syringe 6.25 MG IV ×2 (03:22→07:54)
[2019-03-29] MEDS: 0.9% Normal Saline 1,000 ML 125 ML IV (06:01)
[2019-03-29 07:40] VITALS: BP 115/73; PULSE 59; RESP 16; TEMP 36.8; O2SAT 95
[2019-03-29 07:46] VITALS: PULSE 65; RESP 16
[2019-03-29] MEDS: Ipratropium/Albuterol Sulfate 3 ML AMPUL.NEB INHALATION (07:46)
[2019-03-29] MEDS: Dicyclomine 10 MG Capsule PO (07:53)
[2019-03-29] MEDS: Mag Hydrox/Al Hydrox/Simeth 30 ML UDC PO (07:53)
[2019-03-29] MEDS: 0.9% Saline Lock 10 ML Syringe IV ×2 (07:53→11:34)
--- NOTE | 2019-03-29 09:33 | PCM.DC ---
- Discharge Diagnoses Current Active Problems: Current Active and Chronic Problems Intractable nausea and vomiting (Acute) Gastroparesis (Chronic) Asthma exacerbation (Acute) C. difficile colitis (Chronic) Seizure disorder (Chronic) You will use the following diet at home:: Other - NPO. tubefeeds through J tube. TPN when available. Call your doctor if you observe: - - intractable N/V Allergies/Adverse Reactions: Allergies Latex, Natural Rubber Allergy (Verified 09/16/18 23:32) Anaphylaxis morphine Adverse Reaction (Verified 09/16/18 23:32) Hives moxifloxacin [From Avelox] Adverse Reaction (Verified 09/16/18 23:32) Hives ondansetron [From Zofran] Adverse Reaction (Verified 09/16/18 23:32) Other Medications to take at Discharge Albuterol Sulfate [Albuterol Sulfate Hfa] 1 - 2 puff IH Q4H PRN PRN 03/27/19 Diazepam [Valium] 5 mg PO BID 03/27/19 Dicyclomine HCl [Bentyl] 10 mg PO Q4H PRN 03/27/19 Epi Pen (for allergic rxn) 0.3 ml IM DAILY PRN PRN 03/27/19 Fluticasone Propionate [Flovent Hfa] 1 puff INHALATION BID 03/27/19 Ipratropium/Albuterol Sulfate [Iprat-Albut 0.5-3(2.5) mg/3 ml] 3 ml INHALATION 4X/DAY 03/27/19 Levetiracetam [Keppra] 2,000 mg PO BID 03/27/19 Oxycodone HCl/Acetaminophen [Oxycodone-Acetaminophen 5-325] 1 tab PO 4X/DAY 03/27/19 Promethazine HCl 50 mg PO Q4H PRN PRN 03/27/19 traZODone [Desyrel] 200 mg PO QHS 03/27/19 Mag Hydrox/Al Hydrox/Simeth [Mylanta II] 30 ml PO Q6H PRN PRN #120 ml 03/29/19 The following prescriptions were given: Mag Hydrox/Al Hydrox/Simeth [Mylanta II] 30 ml PO Q6H PRN PRN #120 ml PRN Reason: HEARTBURN Transmission Status: Pending to [facility]/pharmacy #[id number] Primary Care Physician: Ta Chen MD [Primary Care Provider] - Within 1 Week Test Results: Test results from this visit will be discussed in further detail at your follow-up appointment, if applicable. Proposed Discharge Date: 03/29/19
--- NOTE | 2019-03-29 09:35 | PCM.DC.SUM ---
Discharge Date and Diagnosis - Problem List Patient Problems: Active and Suspected Problems Intractable nausea and vomiting (Acute) Asthma exacerbation (Acute) Date of Admission: 03/27/19 Date of Discharge: 03/29/19 - Primary Discharge Diagnosis Active and Suspected Problems Intractable nausea and vomiting (Acute) - Secondary Discharge Diagnosis Chronic Problems Gastroparesis (Chronic) C. difficile colitis (Chronic) Seizure disorder (Chronic) Hospital Course and Treatment Operations: None Procedures: None Summary of Care Provided: The patient is a 39 year old F presents with intractable nausea and vomiting. Patient has known gastroparesis likely due to her many surgeries that she has had. Patient states that she has had 135 surgeries. Patient has a combination GJ tube. She uses J-tube to administer tube feeds and then the G-tube to suction off what she drinks. Patient states that she drinks pretty much for pleasure and want to suction out through the G-tube portion she tells me today that there is no appropriate adapters for her GJ tube here nor at home and so what she is doing is using duct tape that her fashions to be able to use suction and being able to administer tube feeds. Patient is to have that tube modified in the coming next weeks. Patient states that she was supposed to been started on TPN this past Sunday but due to some weather issues that the TPN solution, which is apparently coming from [place], has been stuck in transit due to weather issues. Despite the patient's young age, patient is being evaluated by palliative care and the patient is wishing to proceed with hospice care. Patient is involved with [facility] palliative care and hospice services. They will come to evaluate the patient. Patient still is having symptoms but is anxious to go home. Labs have been unremarkable. Patient will resume her typical medications that she is on at home. [] Patient Problems: Active and Suspected Problems Intractable nausea and vomiting (Acute) Asthma exacerbation (Acute) Subjective: Still with nausea vomiting and diarrhea now. - Physical Exam Vitals/I&O's: Vital Signs Temp Pulse Resp BP Pulse Ox 36.9 C 65 16 120/66 94 03/29/19 03:17 03/29/19 07:46 03/29/19 07:46 03/29/19 03:17 03/29/19 03:17 Oxygen Delivery Method Room Air Weight: 145.15 kg Body Mass Index (BMI) 56.7 Intake and Output for Last 24 Hours 03/27/19 03/28/19 03/29/19 23:59 23:59 23:59 Intake Total 953.33 / 953.33 2855.42 / 2955.42 1600 / 1600 Balance 953.33 / 953.33 2855.42 / 2955.42 1600 / 1600 General: Alert, No apparent distress HEENT: Atraumatic, Normocephalic Oral: Moist Mucosa, No Gingival or Mucosal Lesions/ Ulcerations Neck: No Nodes, Trachea Midline Lungs: Clear to auscultation, Normal air movement, No rhonchi, No wheeze, No rales Cardiovascular: Regular rate, Regular Rhythm, Normal S1, Normal S2, No murmurs Abdomen: Bowel Sounds Present, Soft, Non Tender, Non-Distended, Obese Extremities: No edema, No Calf Tenderness Microbiology Past 72 Hours 03/27/19 21:10 Stool Enteric Bacteriology - Final 03/27/19 21:10 Stool C. difficile DNA Amplification - Final 03/27/19 16:15 Mucosa - Nose Influenza Types A,B Direct FA (ARELI) - Final Current Medications Al Hydroxide/Mg Hydroxide (Mylanta Ii) 30 ml PO Q6H PRN PRN PRN Reason: HEARTBURN Last Admin: 03/29/19 07:53 Dose: 30 ml Documented by: Albuterol Sulfate (Ventolin Aerosols) 2.5 mg INHALATION Q6H PRN PRN PRN Reason: SOB &/OR WHEEZING Last Admin: 03/28/19 03:01 Dose: 2.5 mg Documented by: Albuterol/Ipratropium (Duoneb) 3 ml INHALATION Q6HWA.RT [facility] Last Admin: 03/29/19 07:46 Dose: 3 ml Documented by: Diazepam (Valium) 5 mg PO BID [facility] Last Admin: 03/28/19 21:37 Dose: 5 mg Documented by: Dicyclomine HCl (Bentyl) 10 mg PO Q4H PRN PRN PRN Reason: spasms Last Admin: 03/29/19 07:53 Dose: 10 mg Documented by: Enoxaparin Sodium (Lovenox) 40 mg SC BID [facility] Last Admin: 03/28/19 21:36 Dose: 40 mg Documented by: Heparin Sodium (Beef Lung) () 50 units IV UD PRN PRN Reason: R Port Heparin Flush Sodium Chloride () 1,000 mls @ 125 mls/hr IV .Q8H [facility] Last Admin: 03/29/19 06:01 Dose: 125 mls/hr Documented by: Levetiracetam (Keppra Tablet) 2,000 mg PO BID [facility] Last Admin: 03/28/19 21:37 Dose: 2,000 mg Documented by: Nutritional Formula (Lactose Free) (Ensure Clear) 120 ml PO TIDCM [facility] Last Admin: 03/29/19 08:10 Dose: Not Given Documented by: Oxycodone HCl (Oxyir) 5 mg PO 4X/DAY [facility] Promethazine HCl (Phenergan) 6.25 mg IV Q4H PRN PRN PRN Reason: NAUSEA/VOMITING Last Admin: 03/29/19 07:54 Dose: 6.25 mg Documented by: Promethazine HCl (Phenergan Tablet) 50 mg PO Q4H PRN PRN PRN Reason: NAUSEA Sodium Chloride () 10 - 40 ml IV UD PRN PRN Reason: R Port Saline Flush Last Admin: 03/29/19 07:53 Dose: 10 ml Documented by: Sodium Chloride (0.9% Nacl (Sterile) Posiflush) 10 - 40 ml IV UD PRN PRN Reason: Port access or dressing change Trazodone HCl (Desyrel) 200 mg PO QHS [facility] Last Admin: 03/28/19 21:37 Dose: Not Given Documented by: Discharge Diet: - - NPO. Tube feeds through J tube. Discharge Activity: Return to Normal Activity, No Restrictions Call your doctor if you observe: - - intractable N/V Home Medications: Medications to take at Discharge Albuterol Sulfate [Albuterol Sulfate Hfa] 1 - 2 puff IH Q4H PRN PRN 03/27/19 Diazepam [Valium] 5 mg PO BID 03/27/19 Dicyclomine HCl [Bentyl] 10 mg PO Q4H PRN 03/27/19 Epi Pen (for allergic rxn) 0.3 ml IM DAILY PRN PRN 03/27/19 Fluticasone Propionate [Flovent Hfa] 1 puff INHALATION BID 03/27/19 Ipratropium/Albuterol Sulfate [Iprat-Albut 0.5-3(2.5) mg/3 ml] 3 ml INHALATION 4X/DAY 03/27/19 Levetiracetam [Keppra] 2,000 mg PO BID 03/27/19 Oxycodone HCl/Acetaminophen [Oxycodone-Acetaminophen 5-325] 1 tab PO 4X/DAY 03/27/19 Promethazine HCl 50 mg PO Q4H PRN PRN 03/27/19 traZODone [Desyrel] 200 mg PO QHS 03/27/19 Mag Hydrox/Al Hydrox/Simeth [Mylanta II] 30 ml PO Q6H PRN PRN #120 ml 03/29/19 Following Prescrptions Were Given to Patient: Mag Hydrox/Al Hydrox/Simeth [Mylanta II] 30 ml PO Q6H PRN PRN #120 ml PRN Reason: HEARTBURN Transmission Status: Pending to [facility]/pharmacy #[id number] Primary Care Physician: Ta Chen MD [Primary Care Provider] - Within 1 Week Disposition: Home with Hospice Minutes spent on discharge:: 35 Patient Condition:: Stable Medical Necessity - Tobacco Use Smoking Status: Current some day smoker Tobacco Use: Cigarettes Meaningful Use Info Meaningful Use Diagnoses (Choose all that apply): None applicable Code Visit Inpatient E&M: 52098 Disch Hosp
== END 2019-03-29 11:38 | disposition hospice, home (50) ==
LOC: ED 15:57 → MS3 19:27
PROVIDERS: Physician Assistant; Admitting Provider Family Medicine; Emergency Provider Emergency Medicine; PCP Internal Medicine
DX: K31.84 Gastroparesis (principal); J45.901 Unspecified asthma with (acute) exacerbation; G40.909 Epilepsy, unspecified, not intractable, without status epilepticus; R00.0 Tachycardia, unspecified; F17.210 Nicotine dependence, cigarettes, uncomplicated; E66.01 Morbid (severe) obesity due to excess calories; Z93.1 Gastrostomy status; Z79.899 Other long term (current) drug therapy; Z71.3 Dietary counseling and surveillance; Z68.43 Body mass index [BMI] 50.0-59.9, adult
CPT/HCPCS: 36591; 80048; 80053; 81001; 83690; 84703; 85025; 87493; 87506; 87804; 93005; 94640; 96361; 96365; 96366; 96372; 96375; 96376; 97802; 99218; 99251; 99284; J7030; J7040; J7050; A4216; G0378; G0463